=== PATIENT | female | born 1995 ===

== ENCOUNTER 2020-05-16 18:40 | Emergency (ER) | payer MEDICAID ==
[~2020-05-16] VITALS: Ht 170.2 cm; Wt 87.0 kg
[2020-05-16 18:46] VITALS: BP 114/72
== END 2020-05-16 23:30 | disposition left against medical advice (07) ==
LOC: ER 18:40
DX: O46.91 Antepartum hemorrhage, unspecified, first trimester (principal); Z3A.12 12 weeks gestation of pregnancy; Z53.21 Procedure and treatment not carried out due to patient leaving prior to being seen by health care provider
CPT/HCPCS: 93005